=== PATIENT | male | born 1960 | race Caucasian/White ===

== ENCOUNTER 2020-10-12 14:03 | Outpatient (REF) | payer OTHER, SELFPAY ==
[2020-10-12 15:03] LABS: Blood Urea Nitrogen 8 mg/dL (9-16); Estimated Glomerular Filt Rate > 60
== END 2020-10-12 14:04 | disposition home or self-care (01) ==
LOC: HO.LAB 14:03
PROVIDERS: Visit Provider Psychiatry & Neurology Neurology
DX: G50.0 Trigeminal neuralgia (principal)
CPT/HCPCS: 36415; 82565; 84520

== ENCOUNTER 2020-10-19 16:14 | Outpatient (REF) | payer OTHER, SELFPAY ==
--- NOTE | ~2020-10-19 | MR_ITS ---
MR BRAIN WITHOUT AND WITH CONTRAST CLINICAL INFORMATION: Trigeminal neuralgia. COMPARISON: None available. TECHNIQUE: Multiplanar, multisequence MRI of the brain was obtained before and after the intravenous administration of 5 mL Gadavist. FINDINGS: There is no pathologic enhancement along the intracranial nor extracranial course of the trigeminal nerves. There is preserved fat within the orbital fissures, pterygopalatine fossa, trigeminal fat pads, and mandibular alveolar foramen bilaterally. No vascular loop compression of the trigeminal nerves. Cavernous sinuses are symmetric and unremarkable. There is no pathologic enhancement intracranially. There is global cerebral volume loss and there is mild chronic microangiopathy. There is no hydrocephalus, extra-axial surface collection, or herniation. The major flow voids at the skull base are preserved. There is no acute infarct on diffusion-weighted imaging. There is no intracranial hemorrhage on the gradient recalled echo acquisition. The midline structures are normal. The cerebellar tonsils are normally positioned. The cerebellum and brainstem are normal. The craniocervical junction is normal. Osseous marrow signal intensity is homogenous. There is a well-circumscribed 1.7 cm soft tissue nodule within the right parotid gland just anterior to the right mastoid tip that is nonspecific. There is a right mastoid effusion. Partially imaged posterior fusion hardware at C3-C4. MR/MR head/brain wo/w con IMPRESSION: - There is no pathologic enhancement along the intracranial nor extracranial course of the trigeminal nerves. No vascular loop compression of the trigeminal nerves. - There is a well-circumscribed 1.7 cm soft tissue nodule within the right parotid gland just anterior to the right mastoid tip that is nonspecific. Consider soft tissue sampling for further assessment. - There is global cerebral volume loss and there is mild chronic microangiopathy. - There is a large right mastoid effusion.
== END 2020-10-19 16:15 | disposition home or self-care (01) ==
LOC: HO.MRI 16:14
PROVIDERS: Visit Provider Psychiatry & Neurology Neurology
DX: G50.0 Trigeminal neuralgia (principal)
CPT/HCPCS: 70553; A9585